=== PATIENT | male | born 1975 | race Caucasian/White ===

== ENCOUNTER → 2017-11-16 | Outpatient (CLI) | payer OTHER | END | disposition home or self-care (01) | LOC: C.RDSM 10:27 | PROVIDERS: ATTEND Orthopaedic Surgery | DX: M25.561 Pain in right knee (principal); M25.562 Pain in left knee ==

== ENCOUNTER → 2017-11-19 | Outpatient (CLI) | payer BC ==
--- NOTE | 2017-11-19 07:46 | DIAGNOSTIC IMAGING REPORT ---
L LOWER EXT JOINT WITHOUT CLINICAL HISTORY: L KNEE SPRAIN MCL pain TECHNIQUE: Multiaxial MRI acquisition COMPARISON STUDY: None FINDINGS: Mild contusion posterior lateral aspect femoral condyle. Minimal contusion fibular head. Slight contusion anterior medial femoral condyle. Partial tear medial patellar retinaculum. Patellar articular services appears to be intact. Partial tear anterior cruciate ligament. Posterior cruciate ligament is intact. The menisci demonstrates unremarkable meniscal signal bilaterally. There is a partial tear of the medial collateral ligament. IMPRESSION: 1. Partial tear medial collateral ligament. 2. Partial tear medial patellar retinaculum and anterior cruciate ligament. 3. Small focal bone contusions posterior lateral aspect femoral condyle and fibular head. The above report was generated using voice recognition software. It may contain grammatical, syntax or spelling errors. Electronically signed by: Leonidas Lemon M.D. 11/19/2017 7:45 AM Dictated Date/Time: 11/19/2017 7:40 AM
== END | disposition home or self-care (01) ==
LOC: C.MRI 06:53
PROVIDERS: ATTEND Orthopaedic Surgery
DX: S83.412A Sprain of medial collateral ligament of left knee, initial encounter (principal); S83.512A Sprain of anterior cruciate ligament of left knee, initial encounter; S83.8X2A Sprain of other specified parts of left knee, initial encounter; X58.XXXA Exposure to other specified factors, initial encounter; Z88.0 Allergy status to penicillin; Z88.6 Allergy status to analgesic agent